=== PATIENT | female | born 1990 | race Caucasian/White ===

== ENCOUNTER → 2017-03-11 | Outpatient (CLI) | payer MEDICAID, OTHER ==
[~2017-03-11] MED LIST: PREN0.01 PO
== END ==
LOC: HPND 08:37
PROVIDERS: ATTEND Family Medicine
DX: Z36.3 Encounter for antenatal screening for malformations (principal)
CPT/HCPCS: 76805; 76817

== ENCOUNTER 2017-06-29 12:12 | Inpatient (IN) | payer MEDICAID ==
[2017-06-29] VITALS (37 sets, daily range): BP systolic 94–141; BP diastolic 47–87; PULSE 49–86; RESP 16–18; TEMP 98.1–98.3
[~2017-06-29 12:12] MED LIST changes: +PREN29TA PO
--- NOTE | 2017-06-29 12:46 | HHI.HP ---
History & Physical H&P HPI Chief Complaint Contractions Date Seen: Jun 29, 2017 Travel History International Travel<30 Days: No Contact w/Intl Traveler<30Days: No History of Present Illness HPI Patient is a 27 year old at 38-4/7 weeks gestation who presents today for contractions. She started having contractions around 6 this morning and they have become more frequent and strong. She denies any vaginal bleeding or discharge. No gush or leaking of fluid. Positive movement. Of note, she had multiple no-shows during the course of her care and was poorly compliant. History (Limited) History Past Medical History Medical History: Denies Significant Hx Obstetric History Obstetric History Past Surgical History Narrative Surgical D&C in 2010 Family History Family History: Negative Social History Alcohol Use: No Tobacco Use: Yes (04/12 ppd) Substance Abuse: No Allergies-Medications Allergies-Medications (Allergen,Severity, Reaction): Coded Allergies: No Known Allergies (Verified , 09/25/11) Home Meds Reported Medications Multivit/Min/Fol Ac/Iron/Pren ( Vit ( Plus)) Tab, 1 TAB PO DAILY 04/22/11 ROS Review of Systems Except as stated in HPI: all other systems reviewed are Neg General / Constitutional: No: Fever, Chills Eyes: No: Blurred Vision, Visual changes HENT: No: Headaches Cardiovascular: No: Chest Pain or Discomfort, Palpitations Respiratory: No: Cough, Short of Breath Gastrointestinal: No: Nausea, Vomiting, Abdominal Pain Genitourinary: Pelvic Pain, No: Discharge, Vaginal Bleeding Musculoskeletal: No: Weakness Skin: No Rash Psychiatric: Substance Abuse (tobacco abuse) Physical Exam Physical Exam Narrative GENERAL: Well-nourished, well-developed patient. SKIN: Warm and dry. HEAD: Normocephalic and atraumatic. EYES: No scleral icterus. No injection or drainage. ENT: No nasal drainage noted. Mucous membranes pink. Airway patent. NECK: Supple, trachea midline. No JVD. CARDIOVASCULAR: Regular rate and rhythm without murmurs, gallops, or rubs. RESPIRATORY: Breath sounds equal bilaterally. No accessory muscle use. ABDOMEN/GI: Abdomen soft, non-tender, bowel sounds present, no rebound, no guarding Gravid to 39 weeks size GENITOURINARY: External Genitalia: intact and normal in appearance BUS glands: normal Cervix: midposition Dilatation: 8 Effacement: 80 Station: 0 Presentation: vertex Membranes: intact Uterine Contractions: q2-3min FHT's: Category: I Baseline: 130 Reactive: + Variability: moderate Decels: none EXTREMITIES: No cyanosis or edema. BACK: Nontender without obvious deformity. NEUROLOGICAL: Awake and alert. Motor and sensory grossly within normal limits. Normal speech. Data Data Data Vital Signs Reviewed: Yes Orders Orders Ob (2e) Additional Admit Info (06/29/17 12:24) Admit To Inpatient (06/29/17 ) Code Status (06/29/17 12:24) Vital Signs (Adult) .Per protocol (06/29/17 12:24) Heart (06/29/17 12:24) Amnioinfusion (06/29/17:24) Urinary Catheter Management .ONCE (06/29/17 12:24) Lactated Ringer's 1000 Ml Inj (Lr 1000 M (06/29/17 12:24) Lactated Ringer's 1000 Ml Inj (Lr 1000 M (06/29/17 12:24) Sodium Chlorid 0.9% 500 Ml Inj (Ns 500 M (06/29/17 12:30) Sodium Chlor 0.9% 1000 Ml Inj (Ns 1000 M (06/29/17 12:44) Lidocaine 1% Inj (50 Ml) (Xylocaine 1% I (06/29/17 12:30) Citric Acid-Sodium Citrate Liq (Bicitra (06/29/17 12:30) Fentanyl Inj (Fentanyl Inj) (06/29/17 12:30) Fentanyl Inj (Fentanyl Inj) (06/29/17 12:30) Complete Blood Count With Diff (06/29/17 12:24) Hold Clot (06/29/17 12:24) Abo/Rh Blood Type (06/29/17 12:24) Urinalysis - C+S If Indicated (06/29/17 12:24) Drug Screen, Random Urine (06/29/17 12:24) Ob/Psych Drug Screen, Urine (06/29/17 12:24) Resp Oxygen Non Rebreathe Mask (06/29/17 ) ^ Epidural / Intrathecal Infus (06/29/17 12:24) Oxytocin 30 Units-500ml Premix (Pitocin (06/29/17 12:30) Lidocaine 1% Inj (50 Ml) (Xylocaine 1% I (06/29/17 12:30) Light Mineral Oil (Muri-Lube Oil) (06/29/17 12:30) Inpatient Certification (06/29/17 ) Rapid Plasma Regin (Rpr) W Ttr (06/29/17 12:34) Hepatitis Profile (06/29/17 12:34) No Care Spec Serology (06/29/17 12:34) MDM MDM Medical Record Reviewed: Yes Narrative Course / MDM 27 year old at 38-4/7 weeks gestation. 1. IUP- Category I tracing, reassuring. 2. Labor- admit for labor 3. GBS unknown 4. Poor care- patient non-compliant, will obtain labs, UDS 5. Anticipate dw Dr. Patterson and Dr. Logan R2 Zhanna Hannon MD, R3 Jun 29, 2017 12:46
[2017-06-29] MEDS ORDERED: OXYTOCIN 30 UNITS-500ML PREMIX 500 ML IV ONE (13:00)
[2017-06-29] MEDS ORDERED: MINERAL OIL 10 ML VIAL TOPICAL PRN (13:00)
[2017-06-29] MEDS ORDERED: LIDOCAINE HCL 1% 50 ML VIAL INFIL PRN (13:00)
[2017-06-29] MEDS ORDERED: CITRIC ACID-SODIUM CITRATE LIQ 30 ML UDC PO SCH (13:00)
[2017-06-29] MEDS ORDERED: LACTATED RINGER'S 1000 ML INJ 1,000 ML IV SCH (13:00)
[2017-06-29] MEDS ORDERED: LIDOCAINE HCL 1% 50 ML VIAL I-DERMAL PRN (13:00)
[2017-06-29] MEDS ORDERED: SODIUM CHLORID 0.9% 500 ML INJ 500 ML IV PRN (13:00)
[2017-06-29] MEDS ORDERED: LACTATED RINGER'S 1000 ML INJ 1,000 ML IV PRN (13:00)
[2017-06-29] MEDS ORDERED: SODIUM CHLOR 0.9% 1000 ML INJ 1,000 ML IV PRN (13:20)
[2017-06-29] MEDS ORDERED: fentaNYL 2MCG-BUPIV 0.125% INJ 100 ML ONE (13:22)
[2017-06-29] MEDS ORDERED: ePHEDrine/NS 25 MG/5 ML SYRINGE ONE (13:22)
[2017-06-29 13:24] LABS: AUTOMATED NEUTROPHIL # 6.8 TH/MM3 (1.8-7.7); BASOPHIL % 0.3 % (0.0-2.0); EOSINOPHIL # 0.1 TH/MM3 (0-0.4); EOSINOPHIL % 0.9 % (0.0-4.0); HEMATOCRIT 38.3 % (35.0-46.0); HEMOGLOBIN 13.2 GM/DL (11.6-15.3); LYMPH % 18.8 % (9.0-44.0); LYMPHOCYTE # 1.8 TH/MM3 (1.0-4.8); MEAN CELL VOLUME 85.3 FL (80.0-100.0); MEAN CORPUSCULAR HEMOGLOBIN 29.4 PG (27.0-34.0); MEAN CORPUSCULAR HGB CONC 34.5 % (32.0-36.0); MEAN PLATELET VOLUME 9.1 FL (7.0-11.0); MONO % 8.7 % (0.0-8.0); MONOCYTE # 0.8 TH/MM3 (0-0.9); NEUT % 71.3 % (16.0-70.0); PLATELET COUNT 264 TH/MM3 (150-450); RED BLOOD COUNT 4.49 MIL/MM3 (4.00-5.30); RED CELL DISTRIBUTION WIDTH 13.8 % (11.6-17.2); WHITE BLOOD COUNT 9.5 TH/MM3 (4.0-11.0)
[2017-06-29] MEDS ORDERED: NO SYSTEM NARCOTICS PRN (14:00)
[2017-06-29] MEDS ORDERED: DO NOT ADMINISTER ANTICOAGULANTS PRN (14:00)
[2017-06-29] MEDS ORDERED: fentaNYL 2MCG-BUPIV 0.125% 100 ML EPIDURAL SCH (14:00)
[2017-06-29] MEDS ORDERED: ePHEDrine/NS 25 MG/5 ML SYRINGE IV PUSH PRN (14:00)
[2017-06-29] MEDS ORDERED: LIDOCAINE HCL 1% 20 ML VIAL ONE (14:23)
--- NOTE | 2017-06-29 14:44 | PD.OB.DELI ---
Gest age assessed date: Jun 29, 2017 Pt started active labor?: Yes Medical induction of labor?: No Artificial rupture of membrane: Yes Artificial ROM date: Jun 29, 2017 Anesthesia: Epidural Episiotomy: None Vaginal Delivery: Normal, Spontaneous Presentation: Occiput anterior Nuchal Cord: x1 Delayed cord clamping (45 sec): Yes : Female Delivery date: Jun 29, 2017 Delivery time: 14:30 One Minute : 9 Five Minute : 9 Weight: 2970g Placenta: Spontaneous delivery, Intact, 3 vessel cord Laceration: No lacerations Estimated blood loss: 250cc Additional Information Supervised by Zhanna Manjarrez MD, R3 Jun 29, 2017 14:44
[2017-06-29] MEDS ORDERED: BENZOCAINE 20% TOPICAL SPRAY 60 ML CAN TOPICAL PRN (14:45)
[2017-06-29] MEDS ORDERED: ALUMINUM/MAGNESIUM/SIMETH 30 ML CUP PO PRN (14:45)
[2017-06-29] MEDS ORDERED: SODIUM CHLORIDE 0.9% FLUSH 10 ML FLUSH IV FLUSH PRN (14:45)
[2017-06-29] MEDS ORDERED: ONDANSETRON ODT 4 MG TAB PO PRN (14:45)
[2017-06-29] MEDS ORDERED: WITCH HAZEL 50%/GLYCERIN 12.5% 40 PAD JAR TOPICAL PRN (14:45)
[2017-06-29] MEDS ORDERED: ZOLPIDEM TARTRATE 5 MG TAB PO PRN (14:45)
[2017-06-29] MEDS ORDERED: ACETAMINOPHEN 325 MG TAB PO PRN (14:45)
[2017-06-29] MEDS ORDERED: oxyCODONE/ACETAMINOPHEN 5 MG/325 MG TAB PO PRN (14:45)
[2017-06-29] MEDS ORDERED: OXYTOCIN 30 UNITS-500ML PREMIX 500 ML IV SCH (14:45)
[2017-06-29 15:01] LABS: BACTERIA, URINE OCC /hpf; BILIRUBIN, URINE NEG (NEG); BLOOD, URINE NEG (NEG); GLUCOSE,URINE 70 mg/dL (NEG); KETONE, URINE NEG (NEG); NITRITE,URINE NEG (NEG); PH, URINE 8.5 (5.0-8.5); SQUAMOUS EPITHELIAL CELL URINE <1 /hpf (0-5); URINE COLOR YELLOW (YELLW/STRAW); URINE LEUKOCYTE ESTERASE NEG (NEG)
[2017-06-29] MEDS ORDERED: DIPHTH/TETANUS/ACEL PERTUSSIS (BOOSTER) 0.5 ML VIAL/PFS IM ONE (16:00)
[2017-06-29] MEDS ORDERED: MEASLES, MUMPS, RUBELLA VACCINE 0.5 ML VIAL SQ ONE (16:00)
[2017-06-29] MEDS: IBUPROFEN 800 MG TAB PO PRN (17:09)
[2017-06-29] MEDS ORDERED: SODIUM CHLORIDE 0.9% FLUSH 10 ML FLUSH IV FLUSH SCH (21:00)
[2017-06-30] MEDS: IBUPROFEN 800 MG TAB PO PRN ×3 (02:14→21:18)
[2017-06-30] MEDS: DOCUSATE SODIUM 50 MG/SENNA 8.6 MG TAB PO PRN (02:17)
--- NOTE | 2017-06-30 07:38 | HHI.OB ---
Subjective Remarks PPD day # 1. No acute issues overnight, vitals are stable, patient remains afebrile. Decreasing lochia and pain. Patient is ambulating without difficulty and voiding independently. She is feeding the baby via breast/formula. She denies any nausea or vomiting and has a good appetite. Positive flatus/bowel movement. She denies any calf pain, chest pain, or shortness of breath. She is bonding well with . Objective Vitals/I&O Vital Signs Date Time Temp Pulse Resp B/P (MAP) Pulse Ox O2 Delivery O2 Flow Rate FiO2 06/29/17 21:42 98.2 64 18 96/53 (67) 06/29/17 18:05 98.3 64 18 120/71 (87) 06/29/17 17:38 98.3 06/29/17 17:01 65 108/73 (85) 06/29/17 16:50 17 06/29/17 16:45 60 122/64 (83) 06/29/17 16:35 16 06/29/17 16:31 52 105/62 (76) 06/29/17 16:17 18 06/29/17 16:15 49 113/72 (86) 06/29/17 16:05 18 06/29/17 16:00 70 94/65 (75) 06/29/17 15:50 17 06/29/17 15:46 56 115/58 (77) 06/29/17 15:35 18 06/29/17 15:31 50 116/63 (80) 06/29/17 15:19 18 06/29/17 15:16 57 126/83 (97) 06/29/17 15:05 16 06/29/17 15:01 78 122/87 (99) 06/29/17 14:46 79 06/29/17 14:45 18 06/29/17 14:25 54 129/49 (75) 06/29/17 14:20 71 124/55 (78) 06/29/17 14:15 86 121/68 (85) 06/29/17 14:11 65 98/49 (65) 06/29/17 14:10 62 06/29/17 14:05 59 114/62 (79) 06/29/17 14:05 68 06/29/17 14:00 70 109/47 (67) 06/29/17 14:00 58 06/29/17 13:55 65 117/59 (78) 06/29/17 13:55 64 06/29/17 13:50 57 06/29/17 13:50 72 123/49 (73) 06/29/17 13:45 66 06/29/17 13:45 68 122/52 (75) 06/29/17 13:40 76 122/62 (82) 06/29/17 13:40 61 06/29/17 13:35 69 06/29/17 13:35 65 109/80 (90) 06/29/17 13:34 60 111/74 (86) 06/29/17 12:45 84 141/77 (98) 06/29/17 12:44 18 06/29/17 12:44 98.1 Objective Remarks GENERAL: Well-nourished, well-developed patient. CARDIOVASCULAR: Regular rate and rhythm without murmurs, gallops, or rubs. RESPIRATORY: Breath sounds equal bilaterally. No accessory muscle use. ABDOMEN/GI: Abdomen soft, non-tender. Fundus: Firm, non-tender at umbilicus. GENITOURINARY: Light to moderate bleeding. EXTREMITIES: No cyanosis or edema, non-tender, without signs of DVT. Medications and IVs Current Medications Medications (Trade) Dose Ordered Sig/Tran Route Start Time Stop Time Status Last Admin (NS Flush) 2 ml BID IV FLUSH 06/29/17 21:00 (NS Flush) 2 ml UNSCH PRN IV FLUSH 06/29/17 14:45 (Tylenol) 650 mg Q4H PRN PO 06/29/17 14:45 (Motrin) 800 mg Q8H PRN PO 06/29/17 14:45 06/30/17 02:14 (Percocet 5-325 Mg) 1 tab Q4H PRN PO 06/29/17 14:45 06/30/17 02:17 (Percocet 5-325 Mg) 2 tab Q4H PRN PO 06/29/17 14:45 (Americaine 20% Top Spr) 1 spray Q4H PRN TOPICAL 06/29/17 14:45 (Tucks Pads) 1 applic QID PRN TOPICAL 06/29/17 14:45 (Lina-Colace) 2 tab Q12H PRN PO 06/29/17 14:45 06/30/17 02:17 (Ambien) 5 mg HS PRN PO 06/29/17 14:45 (Mag-Al Plus Susp Liq) 15 ml Q8H PRN PO 06/29/17 14:45 (Zofran Odt) 4 mg Q6H PRN PO 06/29/17 14:45 Assessment/Plan Assessment and Plan 27 y/o female who is PPD # 1 s/p . -Continue routine care. -Percocet and Motrin PRN pain. -Encouraged OOB. Advised pelvic rest for 6 wks. -Re: ctrl, she would like to consider her options. - Discharge home tomorrow. Zhanna Almanza Dr., MD, R3 Jun 30, 2017 07:38
[2017-06-30 08:00] VITALS: BP 119/65; PULSE 78; RESP 18; TEMP 98.2; O2SAT 100
[2017-06-30] MEDS: oxyCODONE/ACETAMINOPHEN 5 MG/325 MG TAB PO PRN ×4 (08:42→21:18)
[2017-06-30 19:00] VITALS: BP 101/60; PULSE 62; RESP 17; TEMP 98.2; O2SAT 97
[2017-07-01] MEDS: oxyCODONE/ACETAMINOPHEN 5 MG/325 MG TAB PO PRN ×4 (01:22→14:20)
[2017-07-01] MEDS: IBUPROFEN 800 MG TAB PO PRN ×2 (06:05→14:21)
--- NOTE | 2017-07-01 07:23 | HHI.OB ---
Subjective Post Day: 2 Remarks PPD day # 2. No acute issues overnight, vitals are stable, patient remains afebrile. Decreasing lochia and pain. Patient is ambulating without difficulty and voiding independently. She is feeding the baby via breast/formula. She denies any nausea or vomiting and has a good appetite. Positive flatus/bowel movement. She denies any calf pain, chest pain, or shortness of breath. She is bonding well with . Objective Vitals/I&O Vital Signs Date Time Temp Pulse Resp B/P (MAP) Pulse Ox O2 Delivery O2 Flow Rate FiO2 06/30/17 19:00 62 101/60 (74) 06/30/17 19:00 98.2 17 97 06/30/17 08:00 98.2 78 18 119/65 (83) 100 Objective Remarks GENERAL: Well-nourished, well-developed patient. CARDIOVASCULAR: Regular rate and rhythm without murmurs, gallops, or rubs. RESPIRATORY: Breath sounds equal bilaterally. No accessory muscle use. ABDOMEN/GI: Abdomen soft, non-tender. Fundus: Firm, non-tender below umbilicus. GENITOURINARY: Light to moderate bleeding. EXTREMITIES: No cyanosis or edema, non-tender, without signs of DVT. Medications and IVs Current Medications Medications (Trade) Dose Ordered Sig/Tran Route Start Time Stop Time Status Last Admin (NS Flush) 2 ml BID IV FLUSH 06/29/17 21:00 (NS Flush) 2 ml UNSCH PRN IV FLUSH 06/29/17 14:45 (Tylenol) 650 mg Q4H PRN PO 06/29/17 14:45 (Motrin) 800 mg Q8H PRN PO 06/29/17 14:45 07/01/17 06:05 (Percocet 5-325 Mg) 1 tab Q4H PRN PO 06/29/17 14:45 06/30/17 02:17 (Percocet 5-325 Mg) 2 tab Q4H PRN PO 06/29/17 14:45 07/01/17 06:05 (Americaine 20% Top Spr) 1 spray Q4H PRN TOPICAL 06/29/17 14:45 (Tucks Pads) 1 applic QID PRN TOPICAL 06/29/17 14:45 (Lina-Colace) 2 tab Q12H PRN PO 06/29/17 14:45 06/30/17 02:17 (Ambien) 5 mg HS PRN PO 06/29/17 14:45 (Mag-Al Plus Susp Liq) 15 ml Q8H PRN PO 06/29/17 14:45 (Zofran Odt) 4 mg Q6H PRN PO 06/29/17 14:45 Assessment/Plan Assessment and Plan 27 y/o female who is PPD # 2 s/p . -Continue routine care. -Percocet and Motrin PRN pain. -Encouraged OOB. Advised pelvic rest for 6 wks. -Re: ctrl, she plans to have a bilateral tubal ligation - Discharge home today dw Ting Boles MD Jul 01, 2017 07:23
[2017-07-01] MEDS ORDERED: OXYC1TAB63 PO (07:29)
[2017-07-01] MEDS ORDERED: IBUP1TAB7 PO (07:29)
--- NOTE | 2017-07-01 08:33 | HHI.DCPOC ---
Discharge Care Plan Diagnosis: (1) Vaginal delivery Report Symptoms to Your Doctor -Temperature above 100.5 degrees -Redness, of incision or excessive or foul smelling drainage -Unusual pain or calf pain -Increased vaginal bleeding -Painful or difficulty urinating -Feelings of extreme sadness or anxiety after 2 weeks Goals to Promote Your Health * To prevent worsening of your condition and complications * To maintain your health at the optimal level Directions to Meet Your Goals Take your medications as prescribed Follow your dietary instruction Follow activity as directed Ensure plenty of rest for recovery Drink fluids for hydration Keep your appointments as scheduled Take your immunizations and boosters as scheduled If your symptoms worsen call your PCP, if no PCP go to Urgent Care Center or Emergency Room Smoking is Dangerous to Your Health. Avoid second hand smoke Call the 24-hour crisis hotline for domestic abuse at Ting Logan MD Jul 01, 2017 08:33
[2017-07-01] MEDS: DOCUSATE SODIUM 50 MG/SENNA 8.6 MG TAB PO PRN (10:10)
== END 2017-07-01 14:28 | disposition home or self-care (01) | DRG 775 ==
LOC: HOBED 12:12 → H2EB 12:26 → H2EA 12:31 → H1EA 17:52
PROVIDERS: ADMIT Obstetrics & Gynecology Maternal & Fetal Medicine; ATTEND Obstetrics & Gynecology Maternal & Fetal Medicine
PROC: 10E0XZZ Delivery of Products of Conception, External Approach (ICD-10-PCS; principal; 2017-06-29)
PROC: 00HU33Z Insertion of Infusion Device into Spinal Canal, Percutaneous Approach (ICD-10-PCS; 2017-06-29)
PROC: 3E0R3BZ Introduction of Anesthetic Agent into Spinal Canal, Percutaneous Approach (ICD-10-PCS; 2017-06-29)
DX: O69.81X0 Labor and delivery complicated by cord around neck, without compression, not applicable or unspecified (principal); F17.210 Nicotine dependence, cigarettes, uncomplicated; Z91.19 Patient's noncompliance with other medical treatment and regimen; Z37.0 Single live birth; Z3A.38 38 weeks gestation of pregnancy; Z23 Encounter for immunization
CPT/HCPCS: 59025; 80074; 80307; 81001; 85025; 86592; 86703; 86762; 86900; 86901; 87491; 87591; G0481